=== PATIENT | male | born 1975 | race Caucasian/White ===

== ENCOUNTER 2016-08-09 11:42 | Outpatient (CLI) | payer OTHER | END 2016-08-09 11:43 | disposition home or self-care (01) | DX: M50.30 Other cervical disc degeneration, unspecified cervical region (principal); M16.11 Unilateral primary osteoarthritis, right hip ==

== ENCOUNTER 2017-02-14 06:12 | Day surgery (SDC) | payer MEDICAID, OTHER ==
[2017-02-14] MEDS ORDERED: ceFAZolin 2 GM/50 ML 50 ML IV ONE (06:30)
[2017-02-14] MEDS ORDERED: LACTATED RINGERS 1,000 ML IV ONE (06:56)
[2017-02-14] MEDS ORDERED: BUPIVACAINE 0.5% PF 30 ML VIAL SUBQ ONE ×2 (07:55→08:59)
[2017-02-14] MEDS ORDERED: HYDROmorphone 1 MG/ML SYRINGE IVP ONE (08:16)
[2017-02-14] MEDS ORDERED: LIDOCAINE-MPF 2% 5 ML VIAL IM ONE (08:16)
[2017-02-14] MEDS ORDERED: ONDANSETRON 4 MG/2 ML VIAL IVP ONE (08:16)
[2017-02-14] MEDS ORDERED: PROPOFOL 200 MG/20 ML VIAL IVP ONE (08:16)
[2017-02-14] MEDS ORDERED: KETOROLAC 30 MG/ML VIAL IVP ONE (08:16)
[2017-02-14] MEDS ORDERED: MIDAZOLAM 2 MG/2 ML VIAL IVP ONE (08:16)
[2017-02-14] MEDS ORDERED: NEOSTIGMINE 1 MG/1 ML 10 ML MDV IVP ONE (08:16)
[2017-02-14] MEDS ORDERED: GLYCOPYRROLATE 1 MG/5 ML VIAL IVP ONE (08:16)
[2017-02-14] MEDS ORDERED: DEXAMETHASONE 4 MG/ML VIAL IVP ONE (08:16)
[2017-02-14] MEDS ORDERED: ROCURONIUM 50 MG/5 ML VIAL IVP ONE (08:16)
[2017-02-14] MEDS ORDERED: fentaNYL 100 MCG/2 ML VIAL ONE (09:22)
[2017-02-14] MEDS ORDERED: HYDROcod/ACETAM 5/325 MG TABLET ONE (10:07)
[2017-02-14] MEDS: fentaNYL 100 MCG/2 ML VIAL ONE ×2 (10:36→10:49)
[2017-02-14 11:27] VITALS: BP 117/70
--- NOTE | 2017-02-14 21:38 | OPERATIVE REPORT ---
DATE OF SURGERY: 02/14/2017 00:00:00 PREOPERATIVE DIAGNOSIS: Right inguinal hernia. POSTOPERATIVE DIAGNOSIS: Bilateral inguinal hernia. OPERATION PERFORMED: Laparoscopic bilateral inguinal hernia repair. OPERATING SURGEON: Teodoro Ryan MD ANESTHESIA: General. INDICATIONS FOR PROCEDURE: The patient presents with pain in the left groin area. On physical exam, yajaira choi has a reducible right inguinal hernia; I did not appreciate one on the left side. He had been told 20 years ago that he had a left inguinal hernia. FINDINGS AT PROCEDURE: The patient had bilateral small indirect inguinal hernias, along with a modera te-sized lipoma on the right side. The repair was done preperitoneal, placing a Bard large 3DMax ligh tweight mesh in both myopectineal orifice areas. DESCRIPTION OF PROCEDURE: After informed consent was obtained, the patient was taken to the operating room and placed in a supine position. General anesthesia was administered. The patient's abdomen was then prepped and draped in the usual sterile fashion. Prior to making any abdominal incisions, the s kin was injected with local anesthesia. An infraumbilical incision was made in the skin using a scalpel and carried down to the fascial layer using electrocautery. The external oblique fascial layer was then incised right lateral of the midli ne. An opening was then developed underneath the rectus muscle. The hernia system balloon was then in serted underneath the muscle and down to the pubic bone. It was then insufflated under direct vision, dissecting the retrorectus space, and the space between the bladder and the pubic bone. Two 5 mm por ts were then placed on either side of midline just below the umbilical port site. Attention first turned to the right side. The patient had a small indirect inguinal hernia, which was taken out of the indirect inguinal hernias space. It was then dissected off the testicular vessels b ack to the anterior superior iliac spine. There was a moderate-sized lipoma which was dissected free also back for a ways. Attention turned to left side, at which the same dissection was performed, except there was no lipoma . Bard large 3DMax mesh was then placed into the myopectineal orifice. The mesh was secured to the Co oper ligament using Bard absorbable SorbaFix Tacker. This was done likewise to the left side. Then 10 mL of Marcaine was dribbled over the cord structures on either side. The preperitoneal space was then desufflated with air with visualization of the mesh staying in good position. The ports had been removed; no bleeding was noted at the port sites. The umbilical fascial defect was closed using running 0 Vicryl suture. Skin incisions were closed using 4-0 Monocryl subcuticular stitch. Dermabond was then applied. The patient was then awakened, extubated, and taken from the operating room in sta ble condition. ESTIMATED BLOOD LOSS: Less than 5 mL. COMPLICATIONS: None. CONDITION OF THE PATIENT AT END OF PROCEDURE: Stable. SPECIMENS: None. DRAINS/PACKS: None. CLASSIFICATION OF WOUND: Clean. JOB #: [id number] EXT JOB #:[id number]
== END 2017-02-14 06:13 | disposition home or self-care (01) ==
LOC: SDS 06:12
PROVIDERS: ATTEND Surgery
PROC: 0YUA4JZ Supplement Bilateral Inguinal Region with Synthetic Substitute, Percutaneous Endoscopic Approach (ICD-10-PCS; principal; 2017-02-14 07:30)
DX: K40.20 Bilateral inguinal hernia, without obstruction or gangrene, not specified as recurrent (principal); Z87.891 Personal history of nicotine dependence
CPT/HCPCS: 49650; 55559; A9270; C1781; J0690; J1170; J7120

== ENCOUNTER 2018-07-14 08:48 | Outpatient (CLI) | payer OTHER ==
[2018-07-14 10:38] LABS: BASOPHILS % (AUTO) 0.6 %; EOSINOPHILS # (AUTO) 0.5 10^3/uL (0.0-0.7); EOSINOPHILS % (AUTO) 7.7 %; LYMPHOCYTES # (AUTO) 1.4 10^3/uL (1.5-3.5); LYMPHOCYTES % (AUTO) 24.1 %; MEAN CORPUSCULAR HEMOGLOBIN 31.3 pg (27.0-31.0); MEAN CORPUSCULAR HGB CONC 34.6 g/dL (32.0-36.0); MEAN CORPUSCULAR VOLUME 90.5 fL (80.0-94.0); MEAN PLATELET VOLUME 9.3 fL (7.4-11.4); MONOCYTES # (AUTO) 0.6 10^3/uL (0.0-1.0); MONOCYTES % (AUTO) 9.6 %; NEUTROPHILS # (AUTO) 3.5 10^3/uL (1.5-6.6); PLT - PLATELET COUNT 188 10^3/uL (130-450); RED BLOOD COUNT 4.79 10^6/uL (4.70-6.10); RED CELL DISTRIBUTION WIDTH 13.2 % (12.0-15.0)
[2018-07-14 10:51] LABS: ALBUMIN/GLOBULIN RATIO 1.2 (1.0-2.2); ALKALINE PHOSPHATASE 38 IU/L (42-121); ALT ALANINE AMINOTRANSFERASE 32 IU/L (10-60); AST ASPARTATE AMINOTRANSFERASE 26 IU/L (10-42); BILIRUBIN,TOTAL 1.2 mg/dL (0.2-1.0); BUN - BLOOD UREA NITROGEN 11 mg/dL (6-20); CHOL/HDL RATIO 2.5 (<5.0); CHOLESTEROL 158 mg/dL; CREATININE 0.8 mg/dL (0.6-1.2); GFR - MDRD 106 (>89); HDL CHOLESTEROL 64 mg/dL; LDL CHOLESTEROL,CALCULATED 85 mg/dL; LDL/HDL RATIO 1.3 (<3.6); TOTAL PROTEIN 7.3 g/dL (6.7-8.2); VLDL CHOLESTEROL 9 mg/dL
[2018-07-14 10:56] LABS: PSA FREE 0.034 ng/mL (0.16-2.81)
[2018-07-14 10:57] LABS: PSA TOTAL 0.11 ng/mL (0.000-2.000)
[2018-07-14 11:03] LABS: CALCIUM 9.2 mg/dL (8.5-10.3); CARBON DIOXIDE - CO2 31 mmol/L (21-32); CHLORIDE 100 mmol/L (101-111); GLUCOSE 97 mg/dL (70-100); SODIUM 138 mmol/L (135-145)
== END 2018-07-14 08:49 | disposition home or self-care (01) ==
LOC: LAB.F 08:48
PROVIDERS: ATTEND Nurse Practitioner Family
DX: R10.9 Unspecified abdominal pain (principal); Z13.6 Encounter for screening for cardiovascular disorders; N50.812 Left testicular pain; R35.0 Frequency of micturition; Z13.29 Encounter for screening for other suspected endocrine disorder
CPT/HCPCS: 36415; 80053; 80061; 83721; 84153; 84154; 84443; 85025

== ENCOUNTER 2018-07-20 16:50 | Outpatient (CLI) | payer OTHER ==
--- NOTE | 2018-07-21 16:50 | Ultrasound Report ---
Reason: ABDOMINAL PAIN,ACUTE,INGUINAL HERNIA,LEFT,TESTICUL Procedure Date: 07/20/2018 Accession Number: [id number] / [id number] Procedure: US - Abdomen Limited CPT Code: FULL RESULT: EXAM: ABDOMEN ULTRASOUND LIMITED EXAM DATE: 07/20/2018 05:19 PM. CLINICAL HISTORY: ABDOMINAL Pain, acute, history of hernia repair COMPARISON: None. TECHNIQUE: Real-time scanning was performed with static images obtained. FINDINGS: Scanning is performed in the area of the palpable left abdominal lump. No cystic or solid mass, hernia, or abnormal fluid collection identified. IMPRESSION: Negative. No abnormality seen in the area of the clinically palpable lump. RADIA
--- NOTE | 2018-07-21 16:57 | Ultrasound Report ---
Reason: ABDOMINAL PAIN,ACUTE,INGUINAL HERNIA,LEFT,TESTICUL Procedure Date: 07/20/2018 Accession Number: [id number] / [id number] Procedure: US - Pelvic Limited or F/U CPT Code: FULL RESULT: EXAM: INGUINAL ULTRASOUND EXAM DATE: 07/20/2018 05:22 PM. CLINICAL HISTORY: Abdominal pain left lower quadrant pain history of hernia repair COMPARISON: None. TECHNIQUE: Real-time sonographic imaging of the left inguinal canal and vascular structures, including color-flow, was performed by the color artist. Multiple registration representative static images were saved for review. FINDINGS: Hernia: None identified with or without Valsalva. Soft Tissues: No fluid collections or adenopathy. Other: None. IMPRESSION: No left inguinal hernia evident. RADIA
--- NOTE | 2018-07-21 17:51 | Ultrasound Report ---
Reason: ABDOMINAL PAIN,ACUTE,INGUINAL HERNIA,LEFT,TESTICUL Procedure Date: 07/20/2018 Accession Number: [id number] / [id number] Procedure: US - Testicle w/Doppler CPT Code: FULL RESULT: EXAM: SCROTAL ULTRASOUND EXAM DATE: 07/20/2018 05:48 PM. CLINICAL HISTORY: ABDOMINAL PAIN,ACUTE INGUINALPain.Testicular pain COMPARISON: None. TECHNIQUE: Real-time scanning was performed with static images obtained. Color-flow images were utilized. FINDINGS: Right: Testis: 2.9 x 2.4 x 1.4 cm. Normal size and echotexture. No mass, micro calcification, or abnormal blood flow. One 4 mm coarse calcification is present. Epididymis: 1.9 x 0.3 x 0.5 cm. Normal size and echotexture. No mass or abnormal blood flow. Hydrocele: None. Varicocele: None. Left: Testis: 3.7 x 2.9 x 1.8 cm. Normal size and echotexture. No mass, calcification, or abnormal blood flow. Epididymis: 3.1 x 0.7 x 0.8 cm. Normal size and echotexture. No mass or abnormal blood flow. Hydrocele: None. Varicocele: None. IMPRESSION: No significant abnormality scrotal ultrasound. RADIA
== END 2018-07-20 16:51 | disposition home or self-care (01) ==
LOC: DI 16:50
PROVIDERS: ATTEND Nurse Practitioner Family
DX: R10.9 Unspecified abdominal pain (principal); K40.90 Unilateral inguinal hernia, without obstruction or gangrene, not specified as recurrent; N50.812 Left testicular pain
CPT/HCPCS: 76705; 76857; 76870; 93975

== ENCOUNTER 2019-05-21 14:19 | Outpatient (CLI) | payer OTHER ==
[2019-05-21 17:43] LABS: BUN - BLOOD UREA NITROGEN 13 mg/dL (6-20); CALCIUM 9.1 mg/dL (8.5-10.3); CARBON DIOXIDE - CO2 28 mmol/L (21-32); CHLORIDE 100 mmol/L (101-111); CREATININE 0.8 mg/dL (0.6-1.2); GFR - MDRD 106 (>89); GLUCOSE 87 mg/dL (70-100); SODIUM 137 mmol/L (135-145)
[2019-05-21 17:54] LABS: RHEUMATOID FACTOR NEGATIVE (Negative)
[2019-05-21 18:08] LABS: CRP - C-REACTIVE PROTEIN < 1.0 mg/dL (0-1.0)
[2019-05-25 13:31] LABS: ANA SCREEN NEGATIVE (NEGATIVE)
== END 2019-05-21 14:20 | disposition home or self-care (01) ==
LOC: LAB.S 14:19
PROVIDERS: ATTEND Registered Nurse
DX: M79.10 Myalgia, unspecified site (principal)
CPT/HCPCS: 36415; 80048; 85651; 86038; 86140; 86430

== ENCOUNTER 2019-06-18 07:00 | Outpatient (CLI) | payer OTHER ==
[2019-06-18 18:10] LABS: H. PYLORIS ANTIGEN STL NEGATIVE (Negative)
== END 2019-06-18 23:59 | disposition home or self-care (01) ==
LOC: LAB.R 07:00
PROVIDERS: ATTEND Family Medicine
DX: R10.9 Unspecified abdominal pain (principal)
CPT/HCPCS: 87338

== ENCOUNTER 2019-09-06 11:58 | Day surgery (SDC) | payer OTHER ==
[2019-09-06] MEDS ORDERED: LACTATED RINGERS 1,000 ML IV ONE (12:05)
[2019-09-06] MEDS ORDERED: CEFAZOLIN SODIUM IN 0.9 % NACL 2 GM/100 ML BAG IV ONE (12:20)
--- NOTE | 2019-09-06 13:36 | ANESTHESIA ---
Pre-Anesthesia VS, & Labs - Diagnosis Recurrent L inguinal hernia - Procedure L inguinal hernia repair Vital Signs: Temp Pulse Resp BP Pulse Ox 36.2 C L 70 12 160/62 H 98 09/06/19 12:06 09/06/19 12:06 09/06/19 12:06 09/06/19 12:06 09/06/19 12:06 Height 6 ft 1 in Weight (kg) 107.3 kg - NPO >8 hours Home Medications and Allergies Home Medications: Ambulatory Orders Cholecalciferol [Vitamin D3] 5,000 unit PO DAILY 09/02/19 Famotidine [Pepcid] 20 - 40 mg PO ONCE 09/02/19 Magnesium Oxide [Magnesium] 400 mg PO DAILY 02/12/17 Multivit-Min/Folic/Vit K/Lycop [Men's Daily Formula Tablet] 1 each PO DAILY 02/12/17 [place]-3/Dha/Epa/Fish Oil [Fish Oil 1,000 mg Softgel] 1 each PO DAILY 02/12/17 Cholecalciferol [Vitamin D3] 5,000 unit PO DAILY 09/02/19 Famotidine [Pepcid] 20 - 40 mg PO ONCE 09/02/19 Allergies/Adverse Reactions: Allergies Allergy/AdvReac Type Severity Reaction Status Date / Time latex Allergy Rash Verified 09/02/19 15:25 milk Allergy migraine Verified 09/02/19 15:36 trigger walnut Allergy mouth Verified 09/02/19 15:36 itches wheat Allergy migraine Verified 09/02/19 15:36 trigger ibuprofen AdvReac GI problems Verified 09/02/19 15:25 Anes History & Medical History - Anesthetic History Anesthesia Complications: reports: No previous complications Family history of Anesthesia Complications: Denies Family history of Malignant Hyperthermia: Denies - Medical History Cardiovascular: reports: Hypertension Pulmonary: reports: None Gastrointestinal: reports: GERD Urinary: reports: None Musculoskeletal: reports: None Endocrine/Autoimmune: reports: None Skin: reports: Eczema Psychosocial: reports: Cannabis - Surgical History General: Colonoscopy Exam General: Alert, Oriented x3, Cooperative Dental: WNL Mouth Openin Fingerbreadth Neck Mobility: Normal Mallampati classification: II Thyromental Distance: 4-6 cm Respiratory: Lungs clear, Normal breath sounds, No respiratory distress Cardiovascular: Regular rate Neurological: Normal speech Mental/Cognitive Status: Alert/Oriented X3, Normal for patient Cognitive Status: Within normal limits Plan Anesthesia Type: General Consent for Procedure(s) Verified and Reviewed: Yes Code Status: Attempt Resuscitation ASA classification: 2-Mild systemic disease Is this case an emergency?: No
[2019-09-06] MEDS ORDERED: BUPIVACAINE 0.25% PF 30 ML VIAL ONE ×2 (13:51→14:46)
[2019-09-06] MEDS ORDERED: LIDOCAINE 1% 50 ML MDV ONE (13:52)
[2019-09-06] MEDS ORDERED: PROPOFOL 200 MG/20 ML VIAL IVP ONE (14:08)
[2019-09-06] MEDS ORDERED: DEXAMETHASONE 4 MG/ML VIAL IVP ONE (14:08)
[2019-09-06] MEDS ORDERED: fentaNYL 100 MCG/2 ML VIAL IVP ONE (14:08)
[2019-09-06] MEDS ORDERED: ONDANSETRON 4 MG/2 ML VIAL IVP ONE (14:08)
[2019-09-06] MEDS ORDERED: HYDROmorphone 1 MG/ML SYRINGE IVP ONE (14:08)
[2019-09-06] MEDS ORDERED: MIDAZOLAM 2 MG/2 ML VIAL IVP ONE (14:08)
[2019-09-06] MEDS ORDERED: BUPIVACAINE 0.25% PF 30 ML VIAL SUBQ ONE ×2 (14:32)
--- NOTE | 2019-09-06 15:06 | OPERATIVE REPORT ---
Operative Report - General Procedure Date: 09/06/19 Planned Procedure: Repair of recurrent left inguinal hernia Pre-Op Diagnosis: Recurrent left inguinal hernia Procedure Performed: Repair of recurrent left inguinal hernia Post Op Diagnosis: Recurrent left inguinal hernia - Procedure Note Primary Surgeon: Oh Anesthesia Provider: PARAM Hunt Anesthesia Technique: General LMA, Local, Regional block Estimated Blood Loss (mL): 2 Indications: Painful recurrent left inguinal hernia after laparoscopic repair Findings: Moderate sized indirect recurrence Complications: None apparent - Other Other Information/Narrative: After obtaining informed consent, the patient is brought to the operating room and placed in the supine position on the operating table. Following successful induction of general endotracheal anesthesia, appropriate padding of all bony prominences, and placement of appropriate monitors, the abdomen was prepped and draped in the standard surgical fashion. A timeout was held per scope protocol. All elements of the surgical safety checklist were followed before, during, and after the procedure. We began the procedure by infiltrating a mixture of local anesthetics medial to the anterior superior iliac spine on the left. This was done to create an ileal inguinal nerve block. We then selected a site for an incision in the left lower quadrant just superior and lateral to the pubic tubercle. This area was anesthetized with additional local anesthetic and an incision was created here.The incision was carried down through the skin and subcutaneous tissue to reveal the fascia of the external oblique aponeurosis. Retractor was placed and the aponeurosis was opened in direction of its fibers. The ilioinguinal nerve was immediately identified. We continued by identifying the spermatic cord and gently encircling it with a [place] drain. The hernia sac was carefully dissected free from the cord structures and was noted to be in the inferior medial position. The sac was in the indirect position. We carefully dissected the spermatic cord from the sac. The hernia sac was then placed back into the abdominal cavity. We elected to repair the hernia with a large Prolene hernia system mesh implant. This was dipped in Ancef containing solution and then deployed into the defect. The posterior leaflet was straightened and flattened in the preperitoneal space. The anterior leaflet was then nicked medially to provide a place for the spermatic cord and then closed with a Vicryl suture. The more inferior aspect was then sewn to Edgar's ligament medially. Laterally it was tucked under the external beak aponeurosis. The wound was checked for hemostasis and irrigated with warm saline solution. It was aspirated free of all fluid and particulate matter. The extra oblique aponeurosis was then closed with a running locking Vicryl suture Su's fascia was closed with Vicryl suture and Monocryl stitches were placed in the skin. All sponge, needle, and instrument counts were correct at the conclusion of the case. The patient was allowed awaken from anesthesia without difficulty and taken to the postanesthesia care unit in good condition.
[2019-09-06] MEDS ORDERED: ONDANSETRON 4 MG/2 ML VIAL IVP PRN (15:10)
[2019-09-06] MEDS ORDERED: ACETAMINOPHEN 325 MG TABLET PO PRN (15:10)
[2019-09-06] MEDS ORDERED: oxyCODONE 5 MG TABLET PO PRN (15:10)
[2019-09-06] MEDS: HYDROmorphone 0.5 MG/0.5 ML SYRINGE ONE ×2 (15:19→15:24)
[2019-09-06 15:58] VITALS: BP 137/85
[2019-09-06] MEDS ORDERED: ACETAMINOPHEN 325 MG TABLET PO ONE (16:01)
[2019-09-06] MEDS ORDERED: oxyCODONE 5 MG TABLET ONE (16:01)
== END 2019-09-06 11:59 | disposition home or self-care (01) ==
LOC: SDS 11:58
PROVIDERS: ATTEND Surgery
DX: K40.91 Unilateral inguinal hernia, without obstruction or gangrene, recurrent (principal)
CPT/HCPCS: 49520; A9270; C1781; J0690; J1170; J7120

== ENCOUNTER 2020-04-07 15:53 | Emergency (ER) | payer MEDICAID, OTHER ==
[2020-04-07] MEDS ORDERED: TETANUS/DIPHTHERIA/PERTUSSIS 0.5 ML SYRINGE IM ONE (16:13)
--- NOTE | 2020-04-07 16:15 | ED Physician Documentation ---
PD HPI UPPER EXT INJURY - Stated complaint Stated Complaint: FALL,ELBOW INJURY - Chief complaint Chief Complaint: Ext Problem - History obtained from History obtained from: Patient - History of Present Illness Location: Right, Elbow Type of injury: Fall Where injury occurred: Home Timing - onset: How many hours ago (1) Timing - duration: Hours (1) Timing - details: Abrupt onset Pain level max: 5 Pain level now: 4 Improved by: Rest, Ice, Immobilization Worsened by: Moving, Palpating Associated symptoms: Swelling, Discolored (ecchymosis and abrasion). No: Weakness, Numbness, Tingling Contributing factors: No: Anticoagulated Recently seen: Not recently seen - Additonal information Additional information: Pt is right handed. Fell at home, landed on R elbow. Review of Systems Constitutional: denies: Fever, Chills GI: denies: Vomiting, Diarrhea Skin: denies: Rash Musculoskeletal: denies: Neck pain, Back pain Neurologic: denies: Focal weakness, Numbness, Headache PD PAST MEDICAL HISTORY - Past Medical History Cardiovascular: Hypertension Respiratory: None Endocrine/Autoimmune: None GI: GERD : None HEENT: Chronic vision loss Psych: Depression, Anxiety, Claustrophobia Musculoskeletal: None Derm: Eczema - Past Surgical History General: Colonoscopy - Present Medications Home Medications: Ambulatory Orders Medication Instructions Recorded Confirmed Magnesium Oxide [Magnesium] 400 mg PO DAILY 02/12/17 09/06/19 Multivit-Min/Folic/Vit K/Lycop 1 each PO DAILY 02/12/17 09/06/19 [Men's Daily Formula Tablet] [place]-3/Dha/Epa/Fish Oil [Fish Oil 1 each PO DAILY 02/12/17 09/06/19 1,000 mg Softgel] Cholecalciferol [Vitamin D3] 5,000 unit PO DAILY 09/02/19 09/06/19 Famotidine [Pepcid] 20 - 40 mg PO ONCE 09/02/19 09/06/19 oxyCODONE [Roxicodone] 5 mg PO Q6H PRN #20 tablet 09/06/19 - Allergies Allergies/Adverse Reactions: Allergies Allergy/AdvReac Type Severity Reaction Status Date / Time latex Allergy Rash Verified 04/07/20 15:58 milk Allergy migraine Verified 04/07/20 15:58 trigger walnut Allergy mouth Verified 04/07/20 15:58 itches wheat Allergy migraine Verified 04/07/20 15:58 trigger ibuprofen AdvReac GI problems Verified 04/07/20 15:58 PD ED PE NORMAL - Vitals Vital signs reviewed: Yes - General General: Alert and oriented X 3, No acute distress - HEENT HEENT: Moist mucous membranes - Neck Neck: Supple, no meningeal sign - Cardiac Cardiac: RRR - Respiratory Respiratory: No respiratory distress, Clear bilaterally - Derm Derm: Warm and dry - Extremities Extremities: Other (R elbow - Full range of motion. Pronation and supination without pain. Has swelling and ecchymosis to the lateral aspect of the right elbow over the olecranon bursa. NVI) - Neuro Neuro: Alert and oriented X 3 Results - Vitals Vitals: Vital Signs - 24 hr 04/07/20 15:56 Temperature 36.8 C Heart Rate 83 Respiratory 16 Rate Blood Pressure 167/84 H O2 Saturation 97 Oxygen O2 Source Room air - Rads (name of study) R elbow xray Radiology: Prelim report reviewed, EMP read contemporaneously, See rad report PD MEDICAL DECISION MAKING - ED course Complexity details: considered differential, d/w patient ED course: Patient with a right elbow contusion. Using the arm freely. Declines pain medications. No evidence of fracture. Tdap given. Wounds were cleansed and bandaged. Negative x-rays. Patient counseled regarding signs and symptoms for which I believe and urgent re-evaluation would be necessary. Patient with good understanding of and agreement to plan and is comfortable going home at this time This document was made in part using voice recognition software. While efforts are made to proofread this document, sound alike and grammatical errors may occur. Departure - Departure Disposition: 01 Home, Self Care Clinical Impression: Elbow contusion Qualifiers: Encounter type: initial encounter Laterality: right Qualified Code(s): S50.01XA - Contusion of right elbow, initial encounter Condition: Good Instructions: ED Contusion Elbow Follow-Up: Kateryna Shah ARNP [Primary Care Provider] - As Needed Comments: Your x-rays do not show any acute fractures today. Follow-up with your doctor for further care. Return if you worsen.
[2020-04-07] MEDS ORDERED: BACITRACIN ZINC OINT 1 PACKET TOP STA (16:19)
--- NOTE | 2020-04-07 16:30 | XRAY Report ---
PROCEDURE: Elbow 3 View RT INDICATIONS: fall, R elbow pain TECHNIQUE: 3 views of the elbow were acquired. COMPARISON: None FINDINGS: Bones: No fractures or dislocations. No suspicious bony lesions. Soft tissues: Focal soft tissue thickening at the olecranon bursa without underlying radiodense fore ign body or soft tissue gas. No elbow joint effusion. No suspicious soft tissue calcifications. IMPRESSION: 1. Focal soft tissue thickening over the olecranon without underlying fracture or foreign body. Reviewed by: Mirian Ambrocio MD on 04/07/2020 4:29 PM PDT Approved by: Mirian Ambrocio MD on 04/07/2020 4:29 PM PDT Station ID: [id number]
[2020-04-07 17:01] VITALS: BP 135/79
== END 2020-04-07 16:59 | disposition home or self-care (01) ==
LOC: ED 15:53
DX: S50.01XA Contusion of right elbow, initial encounter (principal); W01.0XXA Fall on same level from slipping, tripping and stumbling without subsequent striking against object, initial encounter; Y92.008 Other place in unspecified non-institutional (private) residence as the place of occurrence of the external cause; Z23 Encounter for immunization; I10 Essential (primary) hypertension
CPT/HCPCS: 73080; 90471; 90715; 99283; 99284; A9270

== ENCOUNTER 2020-04-21 13:25 | Outpatient (CLI) | payer MEDICAID ==
--- NOTE | 2020-04-21 14:54 | XRAY Report ---
PROCEDURE: Hand 2 View LT INDICATIONS: HAND JOINT PAIN LT M79.642 TECHNIQUE: 2 views of the hand(s) acquired. COMPARISON: None FINDINGS: Bones: No fractures or dislocations. No suspicious bony lesions. No significant joint space loss, sclerosis, subcortical cystic changes, or hypertrophic bone formation at the first CMC joint, indicat ed location of pain. Soft tissues: No suspicious soft tissue calcifications. IMPRESSION: 1. Normal left hand. No radiographic evidence of arthritis. Reviewed by: Mirian Ambrocio MD on 04/21/2020 2:52 PM PDT Approved by: Mirian Ambrocio MD on 04/21/2020 2:52 PM PDT Station ID: [id number]
== END 2020-04-21 13:26 | disposition home or self-care (01) ==
LOC: DI.S 13:25
PROVIDERS: ATTEND Registered Nurse
DX: M79.642 Pain in left hand (principal)

== ENCOUNTER 2020-06-22 11:07 | Outpatient (CLI) | payer MEDICAID ==
--- NOTE | 2020-06-22 14:39 | XRAY Report ---
PROCEDURE: Shoulder 3 View RT INDICATIONS: RIGHT SHOULDER PAIN TECHNIQUE: 4 views of the shoulder were acquired. COMPARISON: None. FINDINGS: Bones: No fractures or dislocations. No suspicious bony lesions. Visualized ribs appear intact. Soft tissues: No suspicious soft tissue calcifications. IMPRESSION: No acute finding. Reviewed by: Rodríguez Hobbs MD on 06/22/2020 1:37 PM [facility] Approved by: Rodríguez Hobbs MD on 06/22/2020 1:37 PM [facility] Station ID: [id number]
== END 2020-06-22 23:59 | disposition home or self-care (01) ==
LOC: DI.S 11:07
PROVIDERS: ATTEND Physician Assistant
DX: M25.511 Pain in right shoulder (principal)

== ENCOUNTER 2020-09-22 18:55 | Outpatient (CLI) | payer MEDICAID ==
--- NOTE | 2020-09-22 20:47 | Ultrasound Report ---
PROCEDURE: Pelvic Limited or F/U INDICATIONS: LEFT FLANK PAIN, HX OF INGUINAL HERNIA TECHNIQUE: Real-time transabdominal scanning was performed of the left groin, with image documentation. COMPARISON: None. FINDINGS: Limited examination of the left inguinal region shows tiny fat-containing inguinal hernia measures 3. 1 mm in width at the neck and does not appear to be compressible or move with Valsalva. IMPRESSION: Small fat-containing nonreducible left inguinal hernia as above. Reviewed by: Gurdeep Santiago MD on 09/22/2020 8:46 PM PDT Approved by: Gurdeep Santiago MD on 09/22/2020 8:46 PM PDT Station ID: [id number]
--- NOTE | 2020-09-22 20:49 | Ultrasound Report ---
PROCEDURE: Retroperitoneal INDICATIONS: LEFT FLANK PAIN, HX INGUINAL HERNIA TECHNIQUE: Real-time scanning was performed of the left kidney, with image documentation. COMPARISON: None. FINDINGS: Kidneys: Right kidney is not evaluated. Left kidney measures 12.54 cm in length. Left renal cortical thickness is 1.45 cm. No solid masses, hydronephrosis, or nephrolithiasis. IMPRESSION: No gross abnormality is seen in left kidney. No hydronephrosis or solid-appearing renal lesion. Reviewed by: Gurdeep Santiago MD on 09/22/2020 8:47 PM PDT Approved by: Gurdeep Santiago MD on 09/22/2020 8:47 PM PDT Station ID: [id number]
== END 2020-09-22 18:56 | disposition home or self-care (01) ==
LOC: DI 18:55
PROVIDERS: ATTEND Physician Assistant
DX: R10.814 Left lower quadrant abdominal tenderness (principal); K40.90 Unilateral inguinal hernia, without obstruction or gangrene, not specified as recurrent

== ENCOUNTER 2021-06-19 08:00 | Outpatient (CLI) | payer MEDICAID ==
[2021-06-19 20:30] LABS: BILIRUBIN,URINE NEGATIVE (NEGATIVE); GLUCOSE, URINE (UA) NEGATIVE (NEGATIVE); KETONES,URINE (UA) NEGATIVE (NEGATIVE); LEUKOCYTE ESTERASE, URINE NEGATIVE (NEGATIVE); NITRITE,URINE NEGATIVE (NEGATIVE); OCCULT BLOOD,URINE NEGATIVE (NEGATIVE); PROTEIN,URINE NEGATIVE (NEGATIVE); UROBILINOGEN,URINE 0.2 (NORMAL) E.U./dL (NORMAL)
[2021-06-19 20:47] LABS: CLARITY,URINE CLEAR (CLEAR)
[2021-06-19 21:24] LABS: BACTERIA,URINE Rare /HPF (None Seen); RBC,URINE 0-5 /HPF (0-5); SQUAMOUS EPITHELIAL CELL,UR NONE SEEN (<= Few); WBC,URINE 0-3 /HPF (0-3)
== END 2021-06-19 23:59 | disposition home or self-care (01) ==
LOC: LAB.S 08:00
PROVIDERS: ATTEND Emergency Medicine
DX: N45.1 Epididymitis (principal)
CPT/HCPCS: 81001; 87086

== ENCOUNTER 2021-07-20 16:20 | Outpatient (CLI) | payer MEDICAID ==
[2021-07-20 16:57] LABS: BILIRUBIN,URINE NEGATIVE (NEGATIVE); GLUCOSE, URINE (UA) NEGATIVE (NEGATIVE); KETONES,URINE (UA) NEGATIVE (NEGATIVE); LEUKOCYTE ESTERASE, URINE NEGATIVE (NEGATIVE); NITRITE,URINE NEGATIVE (NEGATIVE); OCCULT BLOOD,URINE NEGATIVE (NEGATIVE); PROTEIN,URINE NEGATIVE (NEGATIVE); UROBILINOGEN,URINE 0.2 (NORMAL) E.U./dL (NORMAL)
[2021-07-20 17:12] LABS: CLARITY,URINE CLEAR (CLEAR)
[2021-07-20 17:57] LABS: BACTERIA,URINE None Seen /HPF (None Seen); RBC,URINE None Seen /HPF (0-5); SQUAMOUS EPITHELIAL CELL,UR NONE SEEN (<= Few); WBC,URINE 0-3 /HPF (0-3)
== END 2021-07-20 16:21 | disposition home or self-care (01) ==
LOC: LAB 16:20
PROVIDERS: ATTEND Physician Assistant
DX: N45.1 Epididymitis (principal)
CPT/HCPCS: 81001; 87086

== ENCOUNTER 2021-07-28 07:28 | Outpatient (CLI) | payer MEDICAID ==
--- NOTE | 2021-07-28 13:17 | Ultrasound Report ---
PROCEDURE: Pelvic Limited or F/U INDICATIONS: ABD PAIN, LLQ TECHNIQUE: Real-time transabdominal scanning was performed of the pelvic organs, with image documentation. COMPARISON: 04/24/2021 FINDINGS: Scanning is performed of the areas of clinical concern. Mesh repair of hernia can be seen on the left . No findings of recurrent hernia can be seen of the abdominal wall. No groin hernia can be seen. A small hydrocele is seen involving the left scrotum. A left epididymal head cyst is seen that measur es 6 x 5 x 6 mm. IMPRESSION: No areas of recurrent hernia can be seen at the areas of hernia repair. No groin hernia can be seen. There is a small left hydrocele. Incidental note is made of: 6 mm left epididymal head cyst. Reviewed by: Sal Israel MD on 07/28/2021 12:16 PM [place] Approved by: Sal Israel MD on 07/28/2021 12:16 PM [facility] Station ID: [id number]
== END 2021-07-28 07:29 | disposition home or self-care (01) ==
LOC: DI 07:28
PROVIDERS: ATTEND Physician Assistant
DX: R10.32 Left lower quadrant pain (principal); N43.3 Hydrocele, unspecified

== ENCOUNTER 2021-10-03 08:17 | Outpatient (CLI) | payer MEDICAID ==
[2021-10-03 15:15] LABS: BASOPHILS # (AUTO) 0.1 10^3/uL (0.0-0.1); BASOPHILS % (AUTO) 0.9 %; EOSINOPHILS # (AUTO) 0.6 10^3/uL (0.0-0.7); EOSINOPHILS % (AUTO) 11.1 %; HCT - HEMATOCRIT 44.5 % (42.0-52.0); HGB - HEMOGLOBIN 14.7 g/dL (14.0-18.0); LYMPHOCYTES # (AUTO) 1.3 10^3/uL (1.5-3.5); LYMPHOCYTES % (AUTO) 24.6 %; MEAN CORPUSCULAR HEMOGLOBIN 30.2 pg (27.0-31.0); MEAN CORPUSCULAR VOLUME 91.6 fL (80.0-94.0); MONOCYTES # (AUTO) 0.4 10^3/uL (0.0-1.0); MONOCYTES % (AUTO) 7.6 %; NEUTROPHILS % (AUTO) 55.6 %; PLT - PLATELET COUNT 218 10^3/uL (130-450); RED BLOOD COUNT 4.86 10^6/uL (4.70-6.10); RED CELL DISTRIBUTION WIDTH 12.9 % (12.0-15.0); WHITE BLOOD COUNT 5.4 x10^3/uL (4.8-10.8)
[2021-10-03 15:20] LABS: ALBUMIN 3.9 g/dL (3.2-5.5); ALBUMIN/GLOBULIN RATIO 1.3 (1.0-2.2); BILIRUBIN,TOTAL 0.7 mg/dL (0.2-1.0); CALCIUM 9.2 mg/dL (8.5-10.3); CREATININE 0.9 mg/dL (0.6-1.2); POTASSIUM 3.8 mmol/L (3.5-5.0); TOTAL PROTEIN 6.8 g/dL (6.7-8.2)
== END 2021-10-03 08:18 | disposition home or self-care (01) ==
LOC: LAB.S 08:17
PROVIDERS: ATTEND Internal Medicine
DX: R10.9 Unspecified abdominal pain (principal); Z12.5 Encounter for screening for malignant neoplasm of prostate
CPT/HCPCS: 36415; 80053; 84153; 85025

== ENCOUNTER 2021-10-18 12:17 | Outpatient (CLI) | payer MEDICAID ==
[2021-10-18] MEDS ORDERED: IOVERSOL 320 100 ML VIAL IVP ONE ×2 (12:44→13:40)
[2021-10-18] MEDS ORDERED: IOVERSOL 320 50 ML VIAL ONE (12:44)
[2021-10-18] MEDS ORDERED: IOVERSOL 320 50 ML VIAL PO ONE (13:41)
--- NOTE | 2021-10-18 16:01 | CT Report ---
PROCEDURE: Abdomen/Pelvis W INDICATIONS: ABD PAIN CONTRAST: IV CONTRAST: Optiray 320 ml: 100 PO CONTRAST: Optiray 320 ml50 TECHNIQUE: After the administration of contrast, 5 mm thick sections acquired from the diaphragms to the sym physis. 5 mm thick coronal and sagittal reformats were acquired. For radiation dose reduction, the following was used: automated exposure control, adjustment of mA and/or kV according to patient size . COMPARISON: None. FINDINGS: Image quality: Excellent. ABDOMEN: Lung bases: Lung bases are clear. Heart size is normal. Small fat-containing [place] hernia on t he left medially. Solid organs: Liver and spleen are normal in size and enhancement. Gallbladder is normal Biliary s ystem is non dilated. Pancreas enhances normally. No adrenal nodules. Kidneys demonstrate normal s ize and enhancement, without hydronephrosis. Peritoneum and bowel: Bowel loops demonstrate normal wall thickness and caliber. No free fluid or a ir. Nodes and vessels: No retroperitoneal or mesenteric adenopathy by size criteria. Aorta and inferior vena cava are normal in size. Miscellaneous: Small fat-containing umbilical hernia. PELVIS: Genitourinary: Bladder wall thickness is normal. Miscellaneous: No inguinal hernias or adenopathy. Bones: No suspicious bony lesions. No vertebral body compression fractures. IMPRESSION: 1. No acute abnormality of the abdomen or pelvis. 2. Small fat-containing umbilical hernia. 3. Fat-containing [place] hernia on the left. Reviewed by: Kenneth Alvarez on 10/18/2021 3:59 PM PDT Approved by: Kenneth Alvarez on 10/18/2021 3:59 PM PDT Station ID: [id number]
== END 2021-10-18 12:18 | disposition home or self-care (01) ==
LOC: DI 12:17
PROVIDERS: ATTEND Internal Medicine
DX: K42.9 Umbilical hernia without obstruction or gangrene (principal); Q79.0 Congenital diaphragmatic hernia
CPT/HCPCS: 74177; Q9967

== ENCOUNTER 2022-09-11 08:07 | Outpatient (CLI) | payer MEDICAID ==
[2022-09-11 14:22] LABS: BASOPHILS # (AUTO) 0.1 10^3/uL (0.0-0.1); BASOPHILS % (AUTO) 1.2 %; EOSINOPHILS # (AUTO) 0.6 10^3/uL (0.0-0.7); EOSINOPHILS % (AUTO) 9.4 %; HCT - HEMATOCRIT 46.3 % (42.0-52.0); HGB - HEMOGLOBIN 15.1 g/dL (14.0-18.0); LYMPHOCYTES # (AUTO) 1.6 10^3/uL (1.5-3.5); LYMPHOCYTES % (AUTO) 27.6 %; MEAN CORPUSCULAR HGB CONC 32.6 g/dL (32.0-36.0); MEAN PLATELET VOLUME 11.1 fL (7.4-11.4); MONOCYTES # (AUTO) 0.6 10^3/uL (0.0-1.0); MONOCYTES % (AUTO) 9.5 %; NEUTROPHILS # (AUTO) 3.1 10^3/uL (1.5-6.6); NEUTROPHILS % (AUTO) 52.3 %; PLT - PLATELET COUNT 222 10^3/uL (130-450); RED BLOOD COUNT 5.03 10^6/uL (4.70-6.10); RED CELL DISTRIBUTION WIDTH 13.2 % (12.0-15.0); WHITE BLOOD COUNT 5.9 x10^3/uL (4.8-10.8)
[2022-09-11 15:13] LABS: ALBUMIN/GLOBULIN RATIO 1.2 (1.0-2.2); ALKALINE PHOSPHATASE 33 IU/L (42-121); ALT ALANINE AMINOTRANSFERASE 27 IU/L (10-60); AST ASPARTATE AMINOTRANSFERASE 22 IU/L (10-42); BILIRUBIN,TOTAL 0.9 mg/dL (0.2-1.0); BUN - BLOOD UREA NITROGEN 10 mg/dL (6-20); CALCIUM 9.6 mg/dL (8.5-10.3); CARBON DIOXIDE - CO2 31 mmol/L (21-32); CHLORIDE 106 mmol/L (101-111); CHOL/HDL RATIO 2.4 (<5.0); CHOLESTEROL 147 mg/dL; CREATININE 0.8 mg/dL (0.6-1.2); GFR - MDRD 104 (>89); GLUCOSE 100 mg/dL (70-100); HDL CHOLESTEROL 61 mg/dL; POTASSIUM 4.8 mmol/L (3.5-5.0); SODIUM 143 mmol/L (135-145); TOTAL PROTEIN 7.4 g/dL (6.7-8.2); TRIGLYCERIDES 37 mg/dL
[2022-09-11 15:17] LABS: THYROID STIMULATING HORMONE 2.24 uIU/mL (0.34-5.60)
== END 2022-09-11 08:08 | disposition home or self-care (01) ==
LOC: LAB.S 08:07
PROVIDERS: ATTEND Nurse Practitioner Acute Care
DX: Z13.228 Encounter for screening for other metabolic disorders (principal); Z13.220 Encounter for screening for lipoid disorders; Z13.29 Encounter for screening for other suspected endocrine disorder; Z13.0 Encounter for screening for diseases of the blood and blood-forming organs and certain disorders involving the immune mechanism
CPT/HCPCS: 36415; 80053; 80061; 83721; 84443; 85025

== ENCOUNTER 2022-11-21 10:57 | Day surgery (SDC) | payer MEDICAID ==
[2022-11-21] MEDS ORDERED: LACTATED RINGERS 1,000 ML IV ONE (11:08)
[2022-11-21] MEDS ORDERED: ceFAZolin 2 GM VIAL ONE (11:11)
[2022-11-21] MEDS ORDERED: BUPIVACAINE 0.25% PF 30 ML VIAL ONE (11:12)
[2022-11-21] MEDS ORDERED: LIDOCAINE MPF 2%-EPI 1:200000 20 ML VIAL ONE (11:12)
[2022-11-21] MEDS ORDERED: metroNIDAZOLE 500 MG/100 ML 500 MG/100 ML BAG ONE (11:12)
[2022-11-21] MEDS ORDERED: LIDOCAINE OINTMENT 5% 35.44 GM TUBE ONE (11:12)
[2022-11-21] MEDS ORDERED: fentaNYL 100 MCG/2 ML VIAL ONE (11:57)
[2022-11-21] MEDS ORDERED: PROPOFOL 200 MG/20 ML VIAL IVP ONE (11:57)
[2022-11-21] MEDS ORDERED: MIDAZOLAM 2 MG/2 ML VIAL ONE (11:57)
--- NOTE | 2022-11-21 12:06 | HISTORY & PHYSICAL EXAMINATION ---
Chief Complaint - Chief Complaint Chief Complaint: periodic pain and swelling anal area History of Present Illness - History Obtained From Records Reviewed: yes History obtained from: pt Exam Limitations: none - History of Present Illness HPI Comment/Other: hx perianal abscess. posterior fistula present History - Past Medical History Cardiovascular: reports: Hypertension Respiratory: reports: None Endocrine/Autoimmune: reports: None GI: reports: GERD : reports: None HEENT: reports: Chronic vision loss Psych: reports: Depression, Anxiety, Claustrophobia Musculoskeletal: reports: Osteoarthritis, Fibromyalgia Derm: reports: Eczema MRSA Hx?: No - Past Surgical History General: reports: Colonoscopy Meds/Allgy - Home Medications Home Medications: Ambulatory Orders Medication Instructions Recorded Confirmed Magnesium Oxide [Magnesium] 400 mg PO DAILY 02/12/17 11/21/22 Multivit-Min/Folic/Vit K/Lycop 1 each PO DAILY 02/12/17 11/21/22 [Men's Daily Formula Tablet] Cholecalciferol [Vitamin D3] 5,000 unit PO DAILY 09/02/19 11/21/22 Sumatriptan Succinate [Imitrex] 50 mg PO DAILY PRN 11/13/22 11/21/22 - Allergies Allergies/Adverse Reactions: Allergies Allergy/AdvReac Type Severity Reaction Status Date / Time latex Allergy Rash Verified 04/07/20 15:58 milk Allergy migraine Verified 04/07/20 15:58 trigger walnut Allergy mouth Verified 04/07/20 15:58 itches wheat Allergy migraine Verified 04/07/20 15:58 trigger ibuprofen AdvReac GI problems Verified 04/07/20 15:58 Review of Systems - Other Findings Other Findings: 10 pt ros as above otherwise unremarkable Exam - Vital Signs Reviewed Vital Signs: Yes Vital Signs: Vital Signs x48h Temp Pulse Resp BP Pulse Ox 11/21/22 11:13 36.4 C L 64 16 138/85 H 98 - Physical Exam General Appearance: positive: Alert, Mild distress Eyes Bilateral: positive: PERRL, EOMI Neck: positive: No JVD, Trachea midline Respiratory: positive: Breath sounds nml Cardiovascular: positive: Regular rate & rhythm Abdomen: positive: Non-tender, No distention Rectal: positive: Other (posterior anal fistula present. appears superficial) Neurologic/Psychiatric: positive: Oriented x3 Conclusion/Plan - Problem List (1) Anal fistula Conclusion/Plan: plan examination under anesthesia and fistulotomy. parq held and consent obtained
[2022-11-21] MEDS ORDERED: BUPIVACAINE 0.5%-EPI 1:200000 PF 30 ML VIAL ONE ×2 (12:31→12:41)
[2022-11-21] MEDS ORDERED: DEXAMETHASONE 4 MG/ML VIAL ONE (12:40)
[2022-11-21] MEDS ORDERED: ONDANSETRON 4 MG/2 ML VIAL ONE (12:40)
[2022-11-21] MEDS ORDERED: METHYLENE BLUE 0.5% 50 MG/10 ML AMPULE ONE (12:46)
[2022-11-21] MEDS ORDERED: HYDROGEN PEROXIDE 3% 473 ML BOTTLE TOP ONE (12:48)
[2022-11-21] MEDS ORDERED: LIDOCAINE OINTMENT 5% 35.44 GM TUBE TOP ONE (12:48)
[2022-11-21] MEDS ORDERED: METHYLENE BLUE 0.5% 50 MG/10 ML AMPULE IR ONE (12:49)
[2022-11-21] MEDS ORDERED: BUPIVACAINE 0.5%-EPI 1:200000 PF 30 ML VIAL SUBQ ONE (12:50)
[2022-11-21] MEDS ORDERED: LACTATED RINGERS 800 ML IV ONE (13:03)
[2022-11-21] MEDS ORDERED: HYDROcod/ACETAM 5/325 MG TABLET PO PRN (13:04)
[2022-11-21] MEDS ORDERED: HYDROmorphone 0.5 MG/0.5 ML SYRINGE IVP PRN ×2 (13:04→13:07)
[2022-11-21] MEDS ORDERED: ONDANSETRON 4 MG/2 ML VIAL IVP PRN (13:07)
[2022-11-21] MEDS ORDERED: ATROPINE ABBOJECT 1 MG/10 ML SYRINGE IVP PRN (13:07)
[2022-11-21] MEDS ORDERED: MORPHINE 2 MG/ML CARPUJECT IVP PRN (13:07)
[2022-11-21] MEDS ORDERED: NALOXONE 0.4 MG/ML VIAL IVP PRN (13:07)
[2022-11-21] MEDS ORDERED: fentaNYL 100 MCG/2 ML VIAL IVP PRN (13:07)
--- NOTE | 2022-11-21 13:09 | OPERATIVE REPORT ---
Operative Report - General Procedure Date: 11/21/22 Planned Procedure: examination under anesthesia and fistulotomy Pre-Op Diagnosis: superficial posterior perianal fistula Procedure Performed: examination under anesthesia and fistulectomy Post Op Diagnosis: same. superficial posterior perianal fistula - Procedure Note Primary Surgeon: fortino lester Anesthesia Technique: General LMA, Local Pathology: benign. not sent Estimated Blood Loss (mL): 2 Drain/Tube Type: Other (none) Indications: perianal fisutula with pain, swelling, drainage Findings: as above. 4 cm long Complications: none - Other Other Information/Narrative: The patient was properly identified brought to the operating room and placed in supine position. Sequential compression devices were placed. Laryngeal mask anesthesia was induced. He was repositioned in candane stirrups. He was prepped and draped in a sterile fashion and given preoperative antibiotics. Examination under anesthesia was performed. He had moderate internal and external hemorrhoids. A posterior fistula was present approximately 3 to 4 cm from the anal Derm. He had a very well-defined thickened fistula tract. It was carefully probed and opening just distal to the dentate line was identified. Given the very well-defined tract it was excised. Musculature was deep to the tract and was not disturbed. Hemostasis was assured local anesthetic was given throughout the procedure. Pad was placed. He was awakened and brought to recovery in good condition.
[2022-11-21] MEDS ORDERED: LACTATED RINGERS 1,000 ML IV SCH (14:00)
[2022-11-21 14:08] VITALS: BP 121/69
--- NOTE | 2022-11-22 07:57 | ANESTHESIA ---
Pre-Anesthesia VS, & Labs - Diagnosis anal fistula - Procedure EUA and fistulotomy Vital Signs: Temp Pulse Resp BP Pulse Ox O2 Flow Rate 36.2 C L 60 15 121/69 98 11/21/22 13:55 11/21/22 13:55 11/21/22 13:55 11/21/22 13:55 11/21/22 13:55 Height: 6 ft 1 in Weight (kg): 114 kg Body Mass Index: 33.1 BMI Classification: Obese - NPO >8 hours Home Medications and Allergies Home Medications: Ambulatory Orders Sumatriptan Succinate [Imitrex] 50 mg PO DAILY PRN 11/13/22 Magnesium Oxide [Magnesium] 400 mg PO DAILY 02/12/17 Multivit-Min/Folic/Vit K/Lycop [Men's Daily Formula Tablet] 1 each PO DAILY 02/12/17 Cholecalciferol [Vitamin D3] 5,000 unit PO DAILY 09/02/19 Sumatriptan Succinate [Imitrex] 50 mg PO DAILY PRN 11/13/22 Allergies/Adverse Reactions: Allergies Allergy/AdvReac Type Severity Reaction Status Date / Time latex Allergy Rash Verified 04/07/20 15:58 milk Allergy migraine Verified 04/07/20 15:58 trigger walnut Allergy mouth Verified 04/07/20 15:58 itches wheat Allergy migraine Verified 04/07/20 15:58 trigger ibuprofen AdvReac GI problems Verified 04/07/20 15:58 Anes History & Medical History - Anesthetic History Anesthesia Complications: reports: No previous complications - Medical History Cardiovascular: reports: Hypertension Pulmonary: reports: None Gastrointestinal: reports: GERD Urinary: reports: None Neuro: reports: Migraines Musculoskeletal: reports: Osteoarthritis, Fibromyalgia Endocrine/Autoimmune: reports: None Skin: reports: Eczema Smoking Status: Never smoker Psychosocial: reports: Cannabis (daily use, smokes) History of Cancer?: No - Surgical History General: reports: Colonoscopy Exam General: Alert, Oriented x3, Cooperative, No acute distress Dental: WNL Mouth Openin Fingerbreadth Neck Mobility: Normal Mallampati classification: II Thyromental Distance: 4-6 cm Mental/Cognitive Status: Alert/Oriented X3, Normal for patient Plan Anesthesia Type: General Consent for Procedure(s) Verified and Reviewed: Yes Code Status: Attempt Resuscitation ASA classification: 2-Mild systemic disease Is this case an emergency?: No
--- NOTE | 2022-11-22 07:57 | ANESTHESIA POST OP EVALUATION ---
Anesthesia Post Eval - Post Anesthesia Eval Vitals: Last Vital Signs Temp 36.2 C L 11/21/22 13:55 Pulse 60 11/21/22 13:55 Resp 15 11/21/22 13:55 BP 121/69 11/21/22 13:55 Pulse Ox 98 11/21/22 13:55 O2 Flow Rate CV Function Including HR & BP: Stable Pain Control: Satisfactory Nausea & Vomiting: Negative Mental Status: Baseline Respiratory Status: Airway Patent Hydration Status: Satisfactory Anesthesia Complications: None
== END 2022-11-21 10:58 | disposition home or self-care (01) ==
LOC: SDS 10:57
PROVIDERS: ATTEND Surgery
DX: K60.3 Anal fistula (principal); I10 Essential (primary) hypertension; K64.8 Other hemorrhoids; K64.4 Residual hemorrhoidal skin tags; E66.9 Obesity, unspecified; Z68.33 Body mass index [BMI] 33.0-33.9, adult
CPT/HCPCS: 46270; A9270; J7120

== ENCOUNTER 2023-09-26 08:24 | Outpatient (CLI) | payer MEDICAID ==
[2023-09-26 15:12] LABS: BASOPHILS # (AUTO) 0.1 10^3/uL (0.0-0.1); BASOPHILS % (AUTO) 1.2 %; EOSINOPHILS # (AUTO) 0.4 10^3/uL (0.0-0.7); EOSINOPHILS % (AUTO) 6.8 %; HGB - HEMOGLOBIN 14.9 g/dL (14.0-18.0); LYMPHOCYTES # (AUTO) 1.5 10^3/uL (1.5-3.5); LYMPHOCYTES % (AUTO) 25.1 %; MEAN CORPUSCULAR HEMOGLOBIN 30.7 pg (27.0-31.0); MEAN CORPUSCULAR HGB CONC 33.1 g/dL (32.0-36.0); MEAN CORPUSCULAR VOLUME 92.6 fL (80.0-94.0); MEAN PLATELET VOLUME 10.9 fL (7.4-11.4); MONOCYTES # (AUTO) 0.6 10^3/uL (0.0-1.0); MONOCYTES % (AUTO) 10.4 %; NEUTROPHILS # (AUTO) 3.3 10^3/uL (1.5-6.6); NEUTROPHILS % (AUTO) 56.3 %; PLT - PLATELET COUNT 223 10^3/uL (130-450); RED BLOOD COUNT 4.86 10^6/uL (4.70-6.10); WHITE BLOOD COUNT 5.9 x10^3/uL (4.8-10.8)
[2023-09-26 15:49] LABS: ALBUMIN/GLOBULIN RATIO 1.4 (1.0-2.2); BILIRUBIN,TOTAL 0.9 mg/dL (0.2-1.0); CALCIUM 9.5 mg/dL (8.5-10.3); CREATININE 0.9 mg/dL (0.6-1.3); POTASSIUM 4.5 mmol/L (3.5-4.5); TOTAL PROTEIN 6.9 g/dL (6.4-8.9)
[2023-09-26 20:32] LABS: ESTIMATED AVERAGE GLUCOSE 100 mg/dL (70-100); HEMOGLOBIN A1c% 5.1 % (4.27-6.07)
== END 2023-09-26 08:25 | disposition home or self-care (01) ==
LOC: LAB.S 08:24
PROVIDERS: ATTEND Nurse Practitioner Acute Care
DX: M79.605 Pain in left leg (principal); G89.29 Other chronic pain; Z13.228 Encounter for screening for other metabolic disorders; Z13.1 Encounter for screening for diabetes mellitus; Z13.0 Encounter for screening for diseases of the blood and blood-forming organs and certain disorders involving the immune mechanism
CPT/HCPCS: 36415; 80053; 83036; 85025

== ENCOUNTER 2023-10-03 11:54 | Outpatient (CLI) | payer MEDICAID ==
--- NOTE | 2023-10-03 15:45 | Ultrasound Report ---
PROCEDURE: Duplex Ext Veins Left INDICATIONS: L LEG PAIN TECHNIQUE: Real-time imaging, as well as color and pulse Doppler interrogation, were performed of the lower extr emity deep veins from the inguinal ligament to the popliteal fossa. Attempted visualization of the ca lf veins was performed. COMPARISON: None. FINDINGS: The deep veins are normally compressible, and free of intraluminal thrombus. Color and pu lse Doppler demonstrate normal phasic intraluminal flow. There is normal augmentation response to di stal compression maneuver. IMPRESSION: No deep venous thrombosis of the visualized left lower extremity. Reviewed by: Brent Sanchez MD on 10/03/2023 3:43 PM PDT Approved by: Brent Sanchez MD on 10/03/2023 3:43 PM PDT Station ID: [id number]
== END 2023-10-03 11:55 | disposition home or self-care (01) ==
LOC: DI 11:54
PROVIDERS: ATTEND Nurse Practitioner Acute Care
DX: M79.605 Pain in left leg (principal)